=== PATIENT | male | born 1960 | race Caucasian/White ===

== ENCOUNTER 2022-09-23 09:02 | Emergency (ER) | payer MEDICARE ==
[~2022-09-23] VITALS: Ht 170.2 cm; Wt 122.0 kg
[~2022-09-23 09:02] MED LIST: AMLO10TA15 PO; ASCO500C18 PO; ASPI-611 PO; ATOR40TA71 PO; CLON0.1T PO; DOCU100C40 PO; FERR210T PO; FURO20TA4 PO; HYDR-4070 PO; INSU100I29 SQ; LISI5TAB22 PO; LOP25T PO; MSC30T PO; OXYC1TAB17 PO; PANT40TA54 PO; POLY17PO10 PO; TRAZ150T78 PO
[2022-09-23] MEDS ORDERED: oxyCODONE/APAP 10/325mg tablet PO ONE (09:45)
[2022-09-23 09:54] LABS: BASOPHILS # (AUTO) 0.1 X10'3 (0-0.2); BASOPHILS % (AUTO) 0.9 % (0-1); EOSINOPHILS # (AUTO) 0.2 X10'3 (0-0.9); EOSINOPHILS % (AUTO) 2.8 % (0-6); HEMATOCRIT 25.4 % (42.0-52.0); HEMOGLOBIN 8.5 g/dl (14.0-17.9); LYMPHOCYTES # (AUTO) 0.7 X10'3 (1.1-4.8); MEAN CORPUSCULAR HEMOGLOBIN 31.4 PG (27.0-31.0); MEAN CORPUSCULAR HGB CONC 33.3 g/dL (33.0-36.5); MEAN CORPUSCULAR VOLUME 94.4 FL (78-98); MEAN PLATELET VOLUME 8.3 FL (7.4-10.4); MONOCYTES # (AUTO) 0.7 X10'3 (0-0.9); MONOCYTES % (AUTO) 9.3 % (2-12); NEUTROPHILS # (AUTO) 6.1 X10'3 (1.8-7.7); PLATELET COUNT 202 X10'3 (140-440); RED BLOOD COUNT 2.69 X10'6 (4.70-6.10); RED CELL DISTRIBUTION WIDTH 15.6 % (11.5-14.5); WHITE BLOOD COUNT 7.8 X10'3 (4.5-11.0)
[2022-09-23 10:11] LABS: ALANINE AMINOTRANSFERASE 14 U/L (12-78); ALBUMIN 2.4 G/DL (3.4-5.0); ALBUMIN/GLOBULIN RATIO 0.7 (1.1-1.5); ALKALINE PHOSPHATASE 81 IU/L (46-116); ANION GAP 11 (8-16); ASPARTATE AMINO TRANSFERASE 14 U/L (10-37); BILIRUBIN,TOTAL 0.2 MG/DL (0.1-1.0); BLOOD UREA NITROGEN 48 MG/DL (7-18); CALCIUM 8.4 MG/DL (8.5-10.1); CHLORIDE 100 MMOL/L (99-107); CREATININE 3.99 MG/DL (0.60-1.10); GLUCOSE 96 MG/DL (70-104); POTASSIUM 5.3 MMOL/L (3.5-5.1); SODIUM 130 MMOL/L (135-145); TOTAL CARBON DIOXIDE 18.9 MMOL/L (24-32); TOTAL PROTEIN 5.7 G/DL (6.4-8.2); eGFR 15 ML/MIN
[2022-09-23] MEDS ORDERED: furosemide 10 MG/1 ML 10ml inj IV ONE (11:00)
[2022-09-23] MEDS ORDERED: FURO40TA4 PO (11:06)
[2022-09-23 11:43] VITALS: BP 106/79
== END 2022-09-23 11:46 | disposition home or self-care (01) ==
LOC: ER 09:02
DX: R06.02 Shortness of breath (principal); R60.0 Localized edema; I51.9 Heart disease, unspecified; E11.9 Type 2 diabetes mellitus without complications; Z79.899 Other long term (current) drug therapy; Z79.1 Long term (current) use of non-steroidal anti-inflammatories (NSAID); Z79.84 Long term (current) use of oral hypoglycemic drugs; Z79.82 Long term (current) use of aspirin
CPT/HCPCS: 36415; 71045; 80053; 83880; 84484; 85025; 93005; 96374; 99285; J1940

== ENCOUNTER 2023-09-17 12:51 | Inpatient (IN) | payer MEDICARE, OTHER ==
[~2023-09-17] VITALS: Ht 170.2 cm; Wt 93.9 kg
[~2023-09-17 12:51] MED LIST changes: -AMLO10TA15 PO; -ASCO500C18 PO; -ASPI-611 PO; -CLON0.1T PO; +CLON0.1T2 PO; -DOCU100C40 PO; -FERR210T PO; -FURO20TA4 PO; -HYDR-4070 PO; -INSU100I29 SQ; -LISI5TAB22 PO; +OXYC10TA47 PO; -OXYC1TAB17 PO; -PANT40TA54 PO; -POLY17PO10 PO; +POLY17PO59 PO; +hyDRALAzine tablet PO
[2023-09-17] MEDS: HYDROmorphone 1 mg/ml syringe IV ONE ×4 (14:43→18:05)
[2023-09-17] MEDS: CefTRIAXone 2gm/D5W 50ml BAG 50 ML IV ONE (14:43)
[2023-09-17] MEDS ORDERED: LOP12.5T PO (15:04)
[2023-09-17 15:05] LABS: BASOPHILS # (AUTO) 0.1 X10'3 (0-0.2); BASOPHILS % (AUTO) 0.9 % (0-1); EOSINOPHILS % (AUTO) 0.7 % (0-6); HEMATOCRIT 31.2 % (42.0-52.0); HEMOGLOBIN 9.9 g/dl (14.0-17.9); LYMPHOCYTES # (AUTO) 0.5 X10'3 (1.1-4.8); LYMPHOCYTES % (AUTO) 7.6 % (21-51); MEAN CORPUSCULAR HEMOGLOBIN 26.2 PG (27.0-31.0); MEAN CORPUSCULAR HGB CONC 31.6 g/dL (33.0-36.5); MEAN CORPUSCULAR VOLUME 82.8 FL (78-98); MEAN PLATELET VOLUME 8.3 FL (7.4-10.4); MONOCYTES # (AUTO) 0.8 X10'3 (0-0.9); MONOCYTES % (AUTO) 12.8 % (2-12); NEUTROPHILS # (AUTO) 5.1 X10'3 (1.8-7.7); PLATELET COUNT 145 X10'3 (140-440); RED BLOOD COUNT 3.77 X10'6 (4.70-6.10); RED CELL DISTRIBUTION WIDTH 20.1 % (11.5-14.5); WHITE BLOOD COUNT 6.5 X10'3 (4.5-11.0)
[2023-09-17 15:16] LABS: ALBUMIN 2.5 G/DL (3.4-5.0); ANION GAP 9 (8-16); BLOOD UREA NITROGEN 30 MG/DL (7-18); BUN/CREATININE RATIO 11.3 (10.0-20.0); CALCIUM 8.4 MG/DL (8.5-10.1); CHLORIDE 99 MMOL/L (99-107); CREATININE 2.65 MG/DL (0.60-1.10); POTASSIUM 4.4 MMOL/L (3.5-5.1); SODIUM 138 MMOL/L (135-145); TOTAL CARBON DIOXIDE 30.5 MMOL/L (24-32); eCRCL 26 ML/MIN; eGFR 24 ML/MIN
[2023-09-17 15:24] LABS: GLUCOSE 130 MG/DL (70-104)
[2023-09-17 15:26] LABS: ANISOCYTOSIS 3+; ELLIPTOCYTES FEW; HYPOCHROMASIA 1+; PLATELET ESTIMATE NORMAL
[2023-09-17 15:27] LABS: SCHISTOCYTES FEW
[2023-09-17] MEDS: fluorescein sod 1mg ophthalmic strip RIGHTEYE ONE (16:00)
[2023-09-17] MEDS ORDERED: magnesium 2GM in 50ml NS 50 ML IV PRN (18:05)
[2023-09-17] MEDS ORDERED: potassium Cl 20 mEq SR tablet PO PRN ×2 (18:05)
[2023-09-17] MEDS ORDERED: ondansetron/PF 4mg/2ml inj IV PRN (18:05)
[2023-09-17] MEDS ORDERED: potassium Cl 40MEQ/1/2NS 520ml 520 ML IV PRN (18:05)
[2023-09-17] MEDS ORDERED: morphine 2 MG/ML inj. syringe IV PRN (18:05)
[2023-09-17] MEDS ORDERED: magnesium hydroxide 30ml (MOM) UD suspension PO PRN (18:05)
[2023-09-17] MEDS ORDERED: magnesium 4gm in 100ml NS 100 ML IV PRN (18:05)
[2023-09-17] MEDS ORDERED: mag hydrox/Alum hydrox/simeth 30ml oral suspension PO PRN (18:05)
[2023-09-17] MEDS ORDERED: magnesium Cl slow-release 64mg tablet PO PRN (18:05)
[2023-09-17] MEDS ORDERED: acetaminophen 325mg tablet PO PRN (18:05)
[2023-09-17] MEDS: acyclovir inj 1,000 MG in normal saline 250ml IV soln 250 ML IV SCH (19:12)
[2023-09-17] MEDS: LORazepam 2 mg/ml vial IV PRN (19:53)
[2023-09-17] MEDS: K and/or MAG REPLACEMENT MC SCH (19:58)
[2023-09-17] MEDS: docusate sod 100mg capsule PO SCH (20:40)
[2023-09-17] MEDS: heparin, porcine 5000 units/ml vial SQ SCH (20:40)
[2023-09-18] VITALS (8 sets, daily range): BP systolic 133–185; BP diastolic 64–98; PULSE 99–109; RESP 13–22; TEMP 96.9–99.5; O2SAT 93–97
[2023-09-18] MEDS: morphine 2 MG/ML inj. syringe IV PRN (01:36)
[2023-09-18] MEDS: piperacillin/tazo 3.375gm/50ml 50 ML IV SCH (01:40)
[2023-09-18 07:52] LABS: BASOPHILS # (AUTO) 0.1 X10'3 (0-0.2); BASOPHILS % (AUTO) 1.3 % (0-1); EOSINOPHILS # (AUTO) 0.3 X10'3 (0-0.9); EOSINOPHILS % (AUTO) 4.6 % (0-6); HEMATOCRIT 33.2 % (42.0-52.0); HEMOGLOBIN 10.6 g/dl (14.0-17.9); LYMPHOCYTES # (AUTO) 0.5 X10'3 (1.1-4.8); LYMPHOCYTES % (AUTO) 6.4 % (21-51); MEAN CORPUSCULAR HEMOGLOBIN 26.5 PG (27.0-31.0); MEAN CORPUSCULAR HGB CONC 31.9 g/dL (33.0-36.5); MEAN CORPUSCULAR VOLUME 83.1 FL (78-98); MEAN PLATELET VOLUME 8.4 FL (7.4-10.4); MONOCYTES # (AUTO) 0.6 X10'3 (0-0.9); MONOCYTES % (AUTO) 8.2 % (2-12); NEUTROPHILS % (AUTO) 79.5 % (42-75); PLATELET COUNT 152 X10'3 (140-440); RED CELL DISTRIBUTION WIDTH 20.1 % (11.5-14.5); WHITE BLOOD COUNT 7.6 X10'3 (4.5-11.0)
[2023-09-18 08:07] LABS: ALANINE AMINOTRANSFERASE 9 U/L (12-78); ALBUMIN 2.6 G/DL (3.4-5.0); ALBUMIN/GLOBULIN RATIO 0.5 (1.1-1.5); ALKALINE PHOSPHATASE 137 IU/L (46-116); ANION GAP 5 (8-16); ASPARTATE AMINO TRANSFERASE 18 U/L (10-37); BILIRUBIN,TOTAL 0.6 MG/DL (0.1-1.0); BLOOD UREA NITROGEN 32 MG/DL (7-18); BUN/CREATININE RATIO 10.4 (10.0-20.0); CHLORIDE 101 MMOL/L (99-107); CREATININE 3.08 MG/DL (0.60-1.10); MAGNESIUM 1.9 MG/DL (1.5-2.4); POTASSIUM 4.3 MMOL/L (3.5-5.1); SODIUM 138 MMOL/L (135-145); TOTAL CARBON DIOXIDE 31.7 MMOL/L (24-32); TOTAL PROTEIN 7.5 G/DL (6.4-8.2); eCRCL 22 ML/MIN; eGFR 20 ML/MIN
[2023-09-18 08:16] LABS: GLUCOSE 97 MG/DL (70-104)
[2023-09-18] MEDS ORDERED: cloNIDine 0.1 mg tablet PO PRN (13:35)
[2023-09-18 15:43] LABS: APTT 26 SECONDS (22-32); FIBRINOGEN 267 MG/DL (177-424); INR 1.2 INR; PROTHROMBIN TIME 12.8 SECONDS (9.0-12.0)
[2023-09-18 16:45] LABS: ABG BASE EXCESS 2.2 mmol/L (-2.0-2.0); ABG HCO3 27.7 mmol/L (22.0-26.0); ABG OXYGEN SATURATION 94.1 % (94-97); ABG PCO2 (T) 48.7 mmHg (35.0-48.0); ABG PH (T) 7.376 (7.340-7.440); ABG PO2 (T) 75.7 mmHg (75.0-100.0); ALLEN'S TEST POSITIVE; FCOHb 1.1 % (0.0-3.9); FHHb 5.8 % (0.0-5.0); FLOW 2 L/min; FMetHb 0.3 % (0.0-1.5); FO2Hb 92.8 % (94-97); MODE NASAL CANNULA; PATIENT TEMPERATURE 37.5; TOTAL HEMOGLOBIN 9.9 G/dl (14.0-17.9)
[2023-09-18] MEDS: QUEtiapine 25mg tablet PO SCH (21:00)
[2023-09-19] VITALS (16 sets, daily range): BP systolic 119–181; BP diastolic 55–107; PULSE 92–116; RESP 12–22; TEMP 98.2–100.2; O2SAT 96–100
[2023-09-19] MEDS ORDERED: normal saline 1000ml 250 ML IV PRN (07:10)
[2023-09-19 07:22] LABS: BASOPHILS # (AUTO) 0.1 X10'3 (0-0.2); BASOPHILS % (AUTO) 1.3 % (0-1); EOSINOPHILS # (AUTO) 0.3 X10'3 (0-0.9); EOSINOPHILS % (AUTO) 4.6 % (0-6); HEMATOCRIT 27.2 % (42.0-52.0); HEMOGLOBIN 8.6 g/dl (14.0-17.9); LYMPHOCYTES # (AUTO) 0.8 X10'3 (1.1-4.8); LYMPHOCYTES % (AUTO) 11.8 % (21-51); MEAN CORPUSCULAR HEMOGLOBIN 26.3 PG (27.0-31.0); MEAN CORPUSCULAR HGB CONC 31.6 g/dL (33.0-36.5); MEAN CORPUSCULAR VOLUME 83.2 FL (78-98); MEAN PLATELET VOLUME 8.2 FL (7.4-10.4); MONOCYTES # (AUTO) 0.8 X10'3 (0-0.9); MONOCYTES % (AUTO) 11.9 % (2-12); NEUTROPHILS # (AUTO) 4.7 X10'3 (1.8-7.7); NEUTROPHILS % (AUTO) 70.4 % (42-75); PLATELET COUNT 138 X10'3 (140-440); RED BLOOD COUNT 3.27 X10'6 (4.70-6.10); RED CELL DISTRIBUTION WIDTH 19.5 % (11.5-14.5); WHITE BLOOD COUNT 6.7 X10'3 (4.5-11.0)
[2023-09-19] MEDS: acyclovir inj 500 MG in normal saline 100ml IV soln 100 ML IV SCH (07:37)
[2023-09-19 07:41] LABS: ALANINE AMINOTRANSFERASE 10 U/L (12-78); ALBUMIN 2.4 G/DL (3.4-5.0); ALBUMIN/GLOBULIN RATIO 0.5 (1.1-1.5); ALKALINE PHOSPHATASE 110 IU/L (46-116); ANION GAP 5 (8-16); ASPARTATE AMINO TRANSFERASE 16 U/L (10-37); BILIRUBIN,TOTAL 0.6 MG/DL (0.1-1.0); BLOOD UREA NITROGEN 34 MG/DL (7-18); CALCIUM 8.8 MG/DL (8.5-10.1); CHLORIDE 103 MMOL/L (99-107); CREATININE 3.78 MG/DL (0.60-1.10); MAGNESIUM 1.8 MG/DL (1.5-2.4); POTASSIUM 4.9 MMOL/L (3.5-5.1); SODIUM 139 MMOL/L (135-145); TOTAL PROTEIN 6.9 G/DL (6.4-8.2); eCRCL 18 ML/MIN; eGFR 16 ML/MIN
[2023-09-19 07:44] LABS: GLUCOSE 80 MG/DL (70-104)
[2023-09-19 08:33] LABS: ANISOCYTOSIS 2+; PLATELET ESTIMATE DECREASED
[2023-09-19 08:34] LABS: HYPOCHROMASIA 1+
[2023-09-19 08:35] LABS: ELLIPTOCYTES FEW
[2023-09-19] MEDS ORDERED: iohexol 300mg/ml 100ml inj. ONE (10:20)
[2023-09-19] MEDS: EPOETIN ALFA-EPBX 20,000 UNIT/ML 1 ML MDV IV ONE (12:21)
[2023-09-19] MEDS: HYDROmorphone inj. 0.5 MG/0.5 ML DISP.SYRIN IV PRN (12:34)
[2023-09-19] MEDS: heparin 1,000unit/ml 10ml vial 10 ML IV ONE (12:34)
[2023-09-19] MEDS: heparin 1,000 units/ml 10ml inj HE ONE ×2 (12:36→12:52)
[2023-09-19] MEDS ORDERED: heparin 1,000 units/ml 10ml inj HE ONE (12:50)
[2023-09-19] MEDS: cloNIDine 0.2 MG/24 HR patch (7 day patch) TD SCH (14:40)
[2023-09-19] MEDS: ringers solution, lacted 1,000 ML IV SCH (18:55)
[2023-09-19] MEDS ORDERED: ondansetron/PF 4mg/2ml inj IV PRN (18:55)
[2023-09-19] MEDS ORDERED: proCHLORperazine 10 MG/2 ml inj IV PRN (18:55)
[2023-09-19] MEDS ORDERED: morphine 2 MG/ML inj. syringe IV PRN (18:55)
[2023-09-19] MEDS ORDERED: morphine 4 MG/ML inj SYRINge IV PRN (18:55)
[2023-09-19] MEDS ORDERED: sevoflurane 250ml liquid IH ONE (18:58)
[2023-09-19] MEDS ORDERED: propofol inj 20 ML IV ONE (19:02)
[2023-09-19] MEDS ORDERED: fentaNYL/PF 50MCG/1 ML 2ML syringe ONE (19:02)
[2023-09-20 01:45] VITALS: BP 140/68; PULSE 98; RESP 18; TEMP 99.2; O2SAT 94
[2023-09-20 06:39] VITALS: BP 152/74; PULSE 92; RESP 14; TEMP 96.8; O2SAT 100
[2023-09-20 07:40] LABS: BASOPHILS # (AUTO) 0.1 X10'3 (0-0.2); BASOPHILS % (AUTO) 1.2 % (0-1); EOSINOPHILS # (AUTO) 0.3 X10'3 (0-0.9); EOSINOPHILS % (AUTO) 4.5 % (0-6); HEMATOCRIT 24.8 % (42.0-52.0); HEMOGLOBIN 7.7 g/dl (14.0-17.9); LYMPHOCYTES # (AUTO) 1.1 X10'3 (1.1-4.8); LYMPHOCYTES % (AUTO) 17.1 % (21-51); MEAN CORPUSCULAR HGB CONC 30.9 g/dL (33.0-36.5); MEAN CORPUSCULAR VOLUME 84.3 FL (78-98); MEAN PLATELET VOLUME 8.6 FL (7.4-10.4); MONOCYTES # (AUTO) 0.9 X10'3 (0-0.9); MONOCYTES % (AUTO) 13.9 % (2-12); NEUTROPHILS # (AUTO) 4.1 X10'3 (1.8-7.7); NEUTROPHILS % (AUTO) 63.3 % (42-75); PLATELET COUNT 123 X10'3 (140-440); RED BLOOD COUNT 2.94 X10'6 (4.70-6.10); RED CELL DISTRIBUTION WIDTH 19.8 % (11.5-14.5); WHITE BLOOD COUNT 6.5 X10'3 (4.5-11.0)
[2023-09-20 07:54] LABS: ALBUMIN 2.3 G/DL (3.4-5.0); ALBUMIN/GLOBULIN RATIO 0.5 (1.1-1.5); ALKALINE PHOSPHATASE 97 IU/L (46-116); ANION GAP 4 (8-16); ASPARTATE AMINO TRANSFERASE 16 U/L (10-37); BILIRUBIN,TOTAL 0.6 MG/DL (0.1-1.0); BLOOD UREA NITROGEN 16 MG/DL (7-18); BUN/CREATININE RATIO 6.3 (10.0-20.0); CALCIUM 8.6 MG/DL (8.5-10.1); CHLORIDE 104 MMOL/L (99-107); CREATININE 2.56 MG/DL (0.60-1.10); MAGNESIUM 1.8 MG/DL (1.5-2.4); POTASSIUM 4.2 MMOL/L (3.5-5.1); SODIUM 139 MMOL/L (135-145); TOTAL CARBON DIOXIDE 31.2 MMOL/L (24-32); TOTAL PROTEIN 6.5 G/DL (6.4-8.2); eCRCL 27 ML/MIN; eGFR 25 ML/MIN
[2023-09-20 07:55] LABS: ALANINE AMINOTRANSFERASE < 6 U/L (12-78); GLUCOSE 75 MG/DL (70-104)
[2023-09-20 08:00] VITALS: RESP 16; O2SAT 96
[2023-09-20] MEDS: NUT.TX.IMP.RENAL FXN,LAC-REDUC (Nepro) 237 ML VANILLA PO SCH (13:00)
[2023-09-20 14:27] LABS: HBSAG SCREEN Negative (Negative)
[2023-09-20 20:00] VITALS: RESP 16; O2SAT 96
[2023-09-20 22:00] VITALS: BP 176/87; PULSE 111; RESP 16; TEMP 98.1; O2SAT 95
[2023-09-21] VITALS (12 sets, daily range): BP systolic 147–180; BP diastolic 68–94; PULSE 97–109; RESP 13–18; TEMP 99.1–99.3; O2SAT 94–100
[2023-09-21 07:03] LABS: BASOPHILS # (AUTO) 0.1 X10'3 (0-0.2); BASOPHILS % (AUTO) 1.3 % (0-1); EOSINOPHILS # (AUTO) 0.3 X10'3 (0-0.9); EOSINOPHILS % (AUTO) 3.5 % (0-6); HEMATOCRIT 25.7 % (42.0-52.0); HEMOGLOBIN 8.2 g/dl (14.0-17.9); MEAN CORPUSCULAR HEMOGLOBIN 26.4 PG (27.0-31.0); MEAN CORPUSCULAR HGB CONC 31.7 g/dL (33.0-36.5); MEAN CORPUSCULAR VOLUME 83.3 FL (78-98); MEAN PLATELET VOLUME 8.4 FL (7.4-10.4); MONOCYTES # (AUTO) 0.6 X10'3 (0-0.9); MONOCYTES % (AUTO) 8.1 % (2-12); NEUTROPHILS # (AUTO) 5.7 X10'3 (1.8-7.7); NEUTROPHILS % (AUTO) 74.1 % (42-75); PLATELET COUNT 148 X10'3 (140-440); RED BLOOD COUNT 3.09 X10'6 (4.70-6.10); RED CELL DISTRIBUTION WIDTH 19.6 % (11.5-14.5); WHITE BLOOD COUNT 7.6 X10'3 (4.5-11.0)
[2023-09-21 07:32] LABS: ALANINE AMINOTRANSFERASE 6 U/L (12-78); ALBUMIN 2.4 G/DL (3.4-5.0); ALBUMIN/GLOBULIN RATIO 0.5 (1.1-1.5); ALKALINE PHOSPHATASE 106 IU/L (46-116); ANION GAP 8 (8-16); ASPARTATE AMINO TRANSFERASE 7 U/L (10-37); BILIRUBIN,TOTAL 0.7 MG/DL (0.1-1.0); BLOOD UREA NITROGEN 21 MG/DL (7-18); CALCIUM 8.9 MG/DL (8.5-10.1); CHLORIDE 102 MMOL/L (99-107); CREATININE 3.49 MG/DL (0.60-1.10); MAGNESIUM 1.8 MG/DL (1.5-2.4); POTASSIUM 4.1 MMOL/L (3.5-5.1); SODIUM 138 MMOL/L (135-145); TOTAL CARBON DIOXIDE 27.7 MMOL/L (24-32); TOTAL PROTEIN 6.9 G/DL (6.4-8.2); eCRCL 20 ML/MIN; eGFR 18 ML/MIN
[2023-09-21 07:36] LABS: GLUCOSE 111 MG/DL (70-104)
[2023-09-21] MEDS: HYDROmorphone 1 mg/ml syringe IV PRN (07:53)
[2023-09-21] MEDS ORDERED: normal saline 1000ml 250 ML IV PRN (09:10)
[2023-09-21] MEDS: heparin 1,000unit/ml 10ml vial 10 ML IV ONE (10:02)
[2023-09-21] MEDS: heparin 1,000 units/ml 10ml inj HE ONE ×2 (11:16→11:17)
[2023-09-21] MEDS: EPOETIN ALFA-EPBX 20,000 UNIT/ML 1 ML MDV IV ONE (11:17)
[2023-09-21] MEDS: hydrALAZINE 20mg/ml inj. IV PRN (12:59)
[2023-09-22 04:45] VITALS: BP 150/87; PULSE 82; RESP 18; TEMP 98.7; O2SAT 96
[2023-09-22 06:39] LABS: BASOPHILS # (AUTO) 0.1 X10'3 (0-0.2); BASOPHILS % (AUTO) 0.9 % (0-1); EOSINOPHILS # (AUTO) 0.4 X10'3 (0-0.9); EOSINOPHILS % (AUTO) 4.8 % (0-6); HEMATOCRIT 26.5 % (42.0-52.0); HEMOGLOBIN 8.5 g/dl (14.0-17.9); LYMPHOCYTES # (AUTO) 0.8 X10'3 (1.1-4.8); LYMPHOCYTES % (AUTO) 10.5 % (21-51); MEAN CORPUSCULAR HEMOGLOBIN 26.9 PG (27.0-31.0); MEAN CORPUSCULAR HGB CONC 31.9 g/dL (33.0-36.5); MEAN CORPUSCULAR VOLUME 84.2 FL (78-98); MEAN PLATELET VOLUME 8.3 FL (7.4-10.4); MONOCYTES # (AUTO) 0.5 X10'3 (0-0.9); MONOCYTES % (AUTO) 6.7 % (2-12); NEUTROPHILS # (AUTO) 5.9 X10'3 (1.8-7.7); NEUTROPHILS % (AUTO) 77.1 % (42-75); PLATELET COUNT 154 X10'3 (140-440); RED BLOOD COUNT 3.15 X10'6 (4.70-6.10); RED CELL DISTRIBUTION WIDTH 19.4 % (11.5-14.5); WHITE BLOOD COUNT 7.6 X10'3 (4.5-11.0)
[2023-09-22 07:06] LABS: ALANINE AMINOTRANSFERASE 10 U/L (12-78); ALBUMIN 2.5 G/DL (3.4-5.0); ALBUMIN/GLOBULIN RATIO 0.6 (1.1-1.5); ALKALINE PHOSPHATASE 106 IU/L (46-116); ANION GAP 8 (8-16); ASPARTATE AMINO TRANSFERASE 16 U/L (10-37); BILIRUBIN,TOTAL 0.6 MG/DL (0.1-1.0); BLOOD UREA NITROGEN 12 MG/DL (7-18); BUN/CREATININE RATIO 4.7 (10.0-20.0); CALCIUM 8.7 MG/DL (8.5-10.1); CHLORIDE 102 MMOL/L (99-107); CREATININE 2.55 MG/DL (0.60-1.10); POTASSIUM 3.7 MMOL/L (3.5-5.1); SODIUM 138 MMOL/L (135-145); TOTAL CARBON DIOXIDE 27.7 MMOL/L (24-32); TOTAL PROTEIN 6.9 G/DL (6.4-8.2); eCRCL 27 ML/MIN; eGFR 25 ML/MIN
[2023-09-22 07:18] LABS: GLUCOSE 106 MG/DL (70-104)
[2023-09-22 07:25] VITALS: RESP 18; O2SAT 96
[2023-09-22 10:00] VITALS: BP 135/70; PULSE 105; RESP 18; TEMP 98.9; O2SAT 100
[2023-09-22] MEDS ORDERED: HYDROcodone/acetaminophen 5mg/325mg tablet PO PRN (12:00)
[2023-09-22] MEDS: HYDROcodone/acetaminophen 10/325mg tab PO PRN (12:17)
[2023-09-22 13:34] LABS: ANISOCYTOSIS 2+; HYPOCHROMASIA 2+; PLATELET ESTIMATE NORMAL
[2023-09-22 13:35] LABS: ELLIPTOCYTES FEW; SCHISTOCYTES FEW
[2023-09-22 18:00] VITALS: BP 135/90; PULSE 105; RESP 16; TEMP 98.1; O2SAT 94
[2023-09-22 20:00] VITALS: RESP 16; O2SAT 94
[2023-09-22 22:00] VITALS: BP 150/64; PULSE 104; RESP 20; TEMP 98.9; O2SAT 94
[2023-09-23 06:00] VITALS: BP 160/84; PULSE 99; RESP 18; TEMP 98; O2SAT 94
[2023-09-23] MEDS ORDERED: HYDROmorphone 1 mg/ml syringe IV PRN (07:10)
[2023-09-23] MEDS ORDERED: HYDROmorphone inj. 0.5 MG/0.5 ML DISP.SYRIN IV PRN (07:10)
[2023-09-23 07:13] LABS: BASOPHILS # (AUTO) 0.1 X10'3 (0-0.2); BASOPHILS % (AUTO) 1.1 % (0-1); EOSINOPHILS # (AUTO) 0.5 X10'3 (0-0.9); EOSINOPHILS % (AUTO) 8.4 % (0-6); HEMATOCRIT 26.1 % (42.0-52.0); HEMOGLOBIN 8.4 g/dl (14.0-17.9); LYMPHOCYTES # (AUTO) 0.9 X10'3 (1.1-4.8); LYMPHOCYTES % (AUTO) 15.9 % (21-51); MEAN CORPUSCULAR HEMOGLOBIN 26.7 PG (27.0-31.0); MEAN CORPUSCULAR VOLUME 83.5 FL (78-98); MEAN PLATELET VOLUME 8.5 FL (7.4-10.4); MONOCYTES # (AUTO) 0.5 X10'3 (0-0.9); NEUTROPHILS # (AUTO) 3.8 X10'3 (1.8-7.7); NEUTROPHILS % (AUTO) 65.6 % (42-75); PLATELET COUNT 170 X10'3 (140-440); RED BLOOD COUNT 3.13 X10'6 (4.70-6.10); RED CELL DISTRIBUTION WIDTH 19.9 % (11.5-14.5); WHITE BLOOD COUNT 5.9 X10'3 (4.5-11.0)
[2023-09-23 07:40] LABS: ALANINE AMINOTRANSFERASE 7 U/L (12-78); ALBUMIN 2.5 G/DL (3.4-5.0); ALBUMIN/GLOBULIN RATIO 0.6 (1.1-1.5); ALKALINE PHOSPHATASE 103 IU/L (46-116); ANION GAP 8 (8-16); ASPARTATE AMINO TRANSFERASE 13 U/L (10-37); BILIRUBIN,TOTAL 0.6 MG/DL (0.1-1.0); BLOOD UREA NITROGEN 21 MG/DL (7-18); BUN/CREATININE RATIO 6.5 (10.0-20.0); CALCIUM 8.8 MG/DL (8.5-10.1); CHLORIDE 104 MMOL/L (99-107); CREATININE 3.23 MG/DL (0.60-1.10); GLUCOSE 123 MG/DL (70-104); POTASSIUM 3.8 MMOL/L (3.5-5.1); SODIUM 138 MMOL/L (135-145); TOTAL CARBON DIOXIDE 26.5 MMOL/L (24-32); eCRCL 21 ML/MIN; eGFR 19 ML/MIN
[2023-09-23] MEDS ORDERED: polyethylene glycol 3350 17gm powd pack PO PRN (08:15)
[2023-09-23] MEDS ORDERED: non-formulary drug (Oxycodone Hcl 1 TAB) PO PRN (08:15)
[2023-09-23 08:55] VITALS: RESP 18; O2SAT 94
[2023-09-23 10:00] VITALS: BP 166/84; PULSE 98; RESP 20; TEMP 97.8; O2SAT 95
[2023-09-23] MEDS: valacyclovir 500mg tablet PO SCH (17:05)
[2023-09-23 18:38] VITALS: BP 153/86; PULSE 97; RESP 16; TEMP 97.9; O2SAT 98
[2023-09-23 20:00] VITALS: RESP 16; O2SAT 98
[2023-09-23] MEDS: atorvastatin 20mg tablet PO SCH (20:59)
[2023-09-23] MEDS: morphine ER 30mg tablet PO SCH (20:59)
[2023-09-23] MEDS: metoprolol tartrate 12.5mg (1/2 tablet) PO SCH (21:04)
[2023-09-23 22:00] VITALS: BP 160/79; PULSE 82; RESP 16; TEMP 98.7; O2SAT 96
[2023-09-23] MEDS: LORazepam 0.5 MG tablet PO PRN (23:07)
[2023-09-23] MEDS: hyDRALAzine 10mg tablet PO SCH (23:07)
[2023-09-24] VITALS (13 sets, daily range): BP systolic 130–156; BP diastolic 69–88; PULSE 98–103; RESP 16–22; TEMP 96.5–98.2; O2SAT 94–99
[2023-09-24] MEDS ORDERED: normal saline 1000ml 250 ML IV PRN (08:15)
[2023-09-24 08:59] LABS: BASOPHILS # (AUTO) 0.1 X10'3 (0-0.2); EOSINOPHILS # (AUTO) 0.5 X10'3 (0-0.9); EOSINOPHILS % (AUTO) 7.7 % (0-6); HEMATOCRIT 27.2 % (42.0-52.0); HEMOGLOBIN 8.6 g/dl (14.0-17.9); LYMPHOCYTES # (AUTO) 0.8 X10'3 (1.1-4.8); LYMPHOCYTES % (AUTO) 12.3 % (21-51); MEAN CORPUSCULAR HEMOGLOBIN 26.4 PG (27.0-31.0); MEAN CORPUSCULAR HGB CONC 31.6 g/dL (33.0-36.5); MEAN CORPUSCULAR VOLUME 83.5 FL (78-98); MEAN PLATELET VOLUME 8.6 FL (7.4-10.4); MONOCYTES # (AUTO) 0.6 X10'3 (0-0.9); MONOCYTES % (AUTO) 9.2 % (2-12); NEUTROPHILS # (AUTO) 4.3 X10'3 (1.8-7.7); NEUTROPHILS % (AUTO) 69.8 % (42-75); PLATELET COUNT 208 X10'3 (140-440); RED BLOOD COUNT 3.25 X10'6 (4.70-6.10); RED CELL DISTRIBUTION WIDTH 20.2 % (11.5-14.5); WHITE BLOOD COUNT 6.1 X10'3 (4.5-11.0)
[2023-09-24 09:12] LABS: ALANINE AMINOTRANSFERASE 9 U/L (12-78); ALBUMIN 2.6 G/DL (3.4-5.0); ALBUMIN/GLOBULIN RATIO 0.5 (1.1-1.5); ALKALINE PHOSPHATASE 107 IU/L (46-116); ANION GAP 8 (8-16); ASPARTATE AMINO TRANSFERASE 13 U/L (10-37); BILIRUBIN,TOTAL 0.7 MG/DL (0.1-1.0); BLOOD UREA NITROGEN 26 MG/DL (7-18); BUN/CREATININE RATIO 7.2 (10.0-20.0); CHLORIDE 102 MMOL/L (99-107); CREATININE 3.61 MG/DL (0.60-1.10); POTASSIUM 3.8 MMOL/L (3.5-5.1); SODIUM 137 MMOL/L (135-145); TOTAL CARBON DIOXIDE 27.3 MMOL/L (24-32); TOTAL PROTEIN 7.4 G/DL (6.4-8.2); eCRCL 19 ML/MIN; eGFR 17 ML/MIN
[2023-09-24 09:17] LABS: GLUCOSE 127 MG/DL (70-104)
[2023-09-24] MEDS ORDERED: CLON1PAT15 TD (10:17)
[2023-09-24] MEDS: heparin 1,000unit/ml 10ml vial 10 ML IV ONE (10:51)
[2023-09-24] MEDS: heparin 1,000 units/ml 10ml inj HE ONE ×2 (10:52→10:53)
[2023-09-24] MEDS: EPOETIN ALFA-EPBX 20,000 UNIT/ML 1 ML MDV IV ONE (10:54)
== END 2023-09-24 17:25 | DRG 570 ==
LOC: ER 12:52 → ED HOLD 18:09 → ORTHO 4S 09-18 02:13
PROVIDERS: ADMIT Internal Medicine; ATTEND Internal Medicine
PROC: BQ28ZZZ Computerized Tomography (CT Scan) of Left Knee (ICD-10-PCS; 2023-09-17)
PROC: BW2GZZZ Computerized Tomography (CT Scan) of Pelvic Region (ICD-10-PCS; 2023-09-17)
PROC: 5A1D70Z Performance of Urinary Filtration, Intermittent, Less than 6 Hours Per Day (ICD-10-PCS; 2023-09-19)
PROC: 0JBN0ZZ Excision of Right Lower Leg Subcutaneous Tissue and Fascia, Open Approach (ICD-10-PCS; principal; 2023-09-19 18:58)
PROC: 5A1D70Z Performance of Urinary Filtration, Intermittent, Less than 6 Hours Per Day (ICD-10-PCS; 2023-09-21)
PROC: 5A1D70Z Performance of Urinary Filtration, Intermittent, Less than 6 Hours Per Day (ICD-10-PCS; 2023-09-24)
DX: L03.115 Cellulitis of right lower limb (principal); G93.41 Metabolic encephalopathy; N18.6 End stage renal disease; B02.30 Zoster ocular disease, unspecified; I13.2 Hypertensive heart and chronic kidney disease with heart failure and with stage 5 chronic kidney disease, or end stage renal disease; L03.116 Cellulitis of left lower limb; S70.11XA Contusion of right thigh, initial encounter; I50.9 Heart failure, unspecified; I25.10 Atherosclerotic heart disease of native coronary artery without angina pectoris; E78.00 Pure hypercholesterolemia, unspecified; E11.22 Type 2 diabetes mellitus with diabetic chronic kidney disease; F17.210 Nicotine dependence, cigarettes, uncomplicated; Z66 Do not resuscitate; D64.9 Anemia, unspecified; B02.9 Zoster without complications; E11.51 Type 2 diabetes mellitus with diabetic peripheral angiopathy without gangrene; E11.319 Type 2 diabetes mellitus with unspecified diabetic retinopathy without macular edema; M51.36 Other intervertebral disc degeneration, lumbar region; F03.90 Unspecified dementia, unspecified severity, without behavioral disturbance, psychotic disturbance, mood disturbance, and anxiety; G89.29 Other chronic pain; X58.XXXA Exposure to other specified factors, initial encounter; Z85.038 Personal history of other malignant neoplasm of large intestine; Z79.899 Other long term (current) drug therapy; Z99.2 Dependence on renal dialysis; Z90.49 Acquired absence of other specified parts of digestive tract; Y93.89 Activity, other specified; Y92.89 Other specified places as the place of occurrence of the external cause; Y99.8 Other external cause status; Z80.42 Family history of malignant neoplasm of prostate
CPT/HCPCS: 36415; 36600; 70450; 71045; 72131; 72192; 73700; 73701; 80048; 80053; 82803; 82948; 83605; 83735; 84145; 85008; 85018; 85025; 85384; 85610; 85730; 87040; 87081; 87340; 97161; 97530; 99285; A4618; A6212; A6213; A6222; A6223; A6224; A6243; A6250; A6253; A6258; A6260; A6446; A6449; A6590; A7000; E1594; G0257; G0378; J0133; J0360; J0696; J1170; J1644; J2060; J2270; J2543; J2704; J3010; J3490; J7030; J7050; Q4081; Q9967

== ENCOUNTER 2024-02-20 11:42 | Emergency (ER) | payer MEDICARE, MEDICAID ==
[~2024-02-20] VITALS: Ht 170.2 cm; Wt 94.5 kg
[~2024-02-20 11:42] MED LIST changes: -CLON0.1T2 PO; +CLON1PAT15 TD; +LOP12.5T PO; -LOP25T PO; -TRAZ150T78 PO; -hyDRALAzine tablet PO
[2024-02-20 11:57] VITALS: TEMP 97.8
[2024-02-20 14:05] LABS: CLARITY,URINE BLOODY (Clear); COLOR,URINE RED (Yellow); UA COLLECTION TYPE CLN CATCH MIDSTREAM
[2024-02-20 14:07] LABS: BACTERIA,URINE FEW /HPF (Neg); RBC,URINE TNTC /HPF (0-2); SQUAMOUS EPITHELIAL CELL,UR FEW /LPF (FEW); WBC,URINE TNTC /HPF (0-4)
[2024-02-20] MEDS ORDERED: CEFD300C3 PO (15:19)
[2024-02-20] MEDS ORDERED: CEFTRIAXONE 500 MG VIAL IM STA (15:19)
[2024-02-20] MEDS: CefTRIAXone 1000mg IM Kit (w/lidocaine diluent) IM ONE (15:44)
[2024-02-20 15:49] VITALS: BP 136/46; PULSE 63; RESP 16; O2SAT 94
== END 2024-02-20 15:51 | disposition home or self-care (01) ==
LOC: ER 11:42
DX: N39.0 Urinary tract infection, site not specified (principal); R31.9 Hematuria, unspecified; I25.10 Atherosclerotic heart disease of native coronary artery without angina pectoris; E11.22 Type 2 diabetes mellitus with diabetic chronic kidney disease; N18.6 End stage renal disease; E78.00 Pure hypercholesterolemia, unspecified; Z79.899 Other long term (current) drug therapy
CPT/HCPCS: 81001; 87077; 87088; 87186; 96372; 99283; J0696

== ENCOUNTER 2024-04-05 12:23 | Inpatient (IN) | payer MEDICARE, MEDICAID ==
[~2024-04-05] VITALS: Ht 175.3 cm; Wt 98.0 kg
[2024-04-05 13:41] LABS: BILIRUBIN,URINE NEGATIVE (Neg); CLARITY,URINE CLOUDY (Clear); COLOR,URINE YELLOW (Yellow); GLUCOSE, URINE 100 mg/dl (Neg); KETONES,URINE TRACE mg/dl (Neg); LEUKOCYTE ESTERASE ,URINE SMALL (Neg); NITRITES, URINE NEGATIVE (Neg); OCCULT BLOOD,URINE NEGATIVE (Neg); PROTEIN,URINE >=300 mg/dl (Neg); UA COLLECTION TYPE NON-SPECIFIED; UROBILINOGEN,URINE 0.2 E.U/dL (0.2-1.0)
[2024-04-05 13:52] LABS: SQUAMOUS EPITHELIAL CELL,UR MODERATE /LPF (FEW)
[2024-04-05 13:54] LABS: BASOPHILS % (AUTO) 0.5 % (0-1); EOSINOPHILS # (AUTO) 0.2 X10'3 (0-0.9); HEMATOCRIT 34.7 % (42.0-52.0); HEMOGLOBIN 11.7 g/dl (14.0-17.9); LYMPHOCYTES # (AUTO) 0.6 X10'3 (1.1-4.8); LYMPHOCYTES % (AUTO) 7.2 % (21-51); MEAN CORPUSCULAR HEMOGLOBIN 31.4 PG (27.0-31.0); MEAN CORPUSCULAR HGB CONC 33.6 g/dL (33.0-36.5); MEAN CORPUSCULAR VOLUME 93.4 FL (78-98); MEAN PLATELET VOLUME 8.9 FL (7.4-10.4); MONOCYTES # (AUTO) 0.8 X10'3 (0-0.9); MONOCYTES % (AUTO) 9.2 % (2-12); NEUTROPHILS # (AUTO) 6.6 X10'3 (1.8-7.7); NEUTROPHILS % (AUTO) 81.1 % (42-75); PLATELET COUNT 125 X10'3 (140-440); RED BLOOD COUNT 3.71 X10'6 (4.70-6.10); RED CELL DISTRIBUTION WIDTH 16.7 % (11.5-14.5); WHITE BLOOD COUNT 8.2 X10'3 (4.5-11.0)
[2024-04-05 13:54] LABS: COARSE GRANULAR CAST 0-3 /LPF (NEGATIVE)
[2024-04-05 13:55] LABS: ALBUMIN 2.3 G/DL (3.4-5.0); ANION GAP 8 (8-16); BLOOD UREA NITROGEN 57 MG/DL (7-18); BUN/CREATININE RATIO 8.7 (10.0-20.0); CALCIUM 8.1 MG/DL (8.5-10.1); CHLORIDE 96 MMOL/L (99-107); CREATININE 6.52 MG/DL (0.60-1.10); POTASSIUM 4.6 MMOL/L (3.5-5.1); SODIUM 133 MMOL/L (135-145); TOTAL CARBON DIOXIDE 29.4 MMOL/L (24-32); eCRCL 11 ML/MIN; eGFR 9 ML/MIN
[2024-04-05 13:56] LABS: WAXY CASTS,URINE 0-3 /LPF (NEGATIVE)
[2024-04-05 13:57] LABS: APTT 28 SECONDS (22-32); INR 1.2 INR; PROTHROMBIN TIME 12.2 SECONDS (9.0-12.0)
[2024-04-05 14:01] LABS: GLUCOSE 123 MG/DL (70-104)
[2024-04-05 14:02] LABS: WBC,URINE 50-100 /HPF (0-4)
[2024-04-05 14:06] LABS: RENAL CELLS, URINE FEW /HPF; TRANSITIONAL EPI CELLS,URINE FEW /HPF
[2024-04-05 14:07] LABS: BACTERIA,URINE 1+ /HPF (Neg); RBC,URINE 0-2 /HPF (0-2)
[2024-04-05] MEDS: CefTRIAXone/D5W-Rocephin 1gm 50 ML IV ONE (14:38)
[2024-04-05] MEDS ORDERED: ondansetron/PF 4mg/2ml inj IV PRN (15:00)
[2024-04-05] MEDS ORDERED: potassium Cl 40MEQ/1/2NS 520ml 520 ML IV PRN (15:00)
[2024-04-05] MEDS ORDERED: acetaminophen 325mg tablet PO PRN ×2 (15:00)
[2024-04-05] MEDS ORDERED: magnesium sulf-water 4G/100mL 100 ML IV PRN (15:00)
[2024-04-05] MEDS ORDERED: potassium Cl 20 mEq SR tablet PO PRN ×2 (15:00)
[2024-04-05] MEDS: CefTRIAXone 2gm/D5W 50ml BAG 50 ML IV SCH (15:00)
[2024-04-05] MEDS ORDERED: magnesium sulf-water 2g/50mL 50 ML IV PRN (15:00)
[2024-04-05] MEDS ORDERED: magnesium Cl slow-release 64mg tablet PO PRN (15:00)
[2024-04-05] MEDS: methylPREDNISolone sod succ 125mg/2ml vial IV SCH (17:06)
[2024-04-05] MEDS: nicotine 14mg patch - 24hr TD SCH (17:06)
[2024-04-05] MEDS: morphine 2 MG/ML inj. syringe IV PRN (17:37)
[2024-04-05 18:23] VITALS: PULSE 74; RESP 16; O2SAT 93
[2024-04-05] MEDS: albuterol 2.5 MG/3 ML nebule NEB SCH (18:23)
[2024-04-05] MEDS ORDERED: VITA-268 PO (18:43)
[2024-04-05] MEDS ORDERED: LOP12.5T PO (18:43)
[2024-04-05] MEDS ORDERED: TRAZ-256 PO (18:43)
[2024-04-05] MEDS ORDERED: PHO667C PO (18:43)
[2024-04-05] MEDS ORDERED: HYDR25TA90 PO (18:43)
[2024-04-05] MEDS ORDERED: PARO10TA4 PO (18:43)
[2024-04-05] MEDS ORDERED: MELA10TA2 PO (18:43)
[2024-04-05] MEDS ORDERED: GABA300C PO (18:43)
[2024-04-05] MEDS ORDERED: ASPI81TA52 PO (18:43)
[2024-04-05] MEDS ORDERED: INSU100I29 (18:43)
[2024-04-05] MEDS ORDERED: [UNRECOGNIZED DRUG - CODE] PO (18:43)
[2024-04-05] MEDS: heparin, porcine 5000 units/ml vial SQ SCH (20:00)
[2024-04-05] MEDS: HYDROcodone/acetaminophen 5mg/325mg tablet PO PRN (20:03)
[2024-04-05] MEDS ORDERED: albuterol 2.5 MG/3 ML nebule NEB PRN (21:15)
[2024-04-06] VITALS (16 sets, daily range): BP systolic 88–136; BP diastolic 40–96; PULSE 63–86; RESP 15–22; TEMP 97.3–99.4; O2SAT 89–98
[2024-04-06 06:21] LABS: BASOPHILS % (AUTO) 0.1 % (0-1); EOSINOPHILS % (AUTO) 0 % (0-6); HEMATOCRIT 35.4 % (42.0-52.0); HEMOGLOBIN 11.7 g/dl (14.0-17.9); LYMPHOCYTES # (AUTO) 0.2 X10'3 (1.1-4.8); LYMPHOCYTES % (AUTO) 3.6 % (21-51); MEAN CORPUSCULAR HEMOGLOBIN 30.8 PG (27.0-31.0); MEAN CORPUSCULAR VOLUME 93.4 FL (78-98); MEAN PLATELET VOLUME 8.8 FL (7.4-10.4); MONOCYTES % (AUTO) 0.7 % (2-12); NEUTROPHILS % (AUTO) 95.6 % (42-75); PLATELET COUNT 122 X10'3 (140-440); RED BLOOD COUNT 3.79 X10'6 (4.70-6.10); RED CELL DISTRIBUTION WIDTH 16.2 % (11.5-14.5); WHITE BLOOD COUNT 6.3 X10'3 (4.5-11.0)
[2024-04-06 06:30] LABS: ALANINE AMINOTRANSFERASE 10 U/L (12-78); ALBUMIN 2.2 G/DL (3.4-5.0); ALBUMIN/GLOBULIN RATIO 0.6 (1.1-1.5); ALKALINE PHOSPHATASE 100 IU/L (46-116); ANION GAP 8 (8-16); ASPARTATE AMINO TRANSFERASE 16 U/L (10-37); BILIRUBIN,TOTAL 0.5 MG/DL (0.1-1.0); BLOOD UREA NITROGEN 66 MG/DL (7-18); CALCIUM 8.2 MG/DL (8.5-10.1); CHLORIDE 96 MMOL/L (99-107); CREATININE 7.34 MG/DL (0.60-1.10); POTASSIUM 5.3 MMOL/L (3.5-5.1); SODIUM 130 MMOL/L (135-145); TOTAL CARBON DIOXIDE 25.9 MMOL/L (24-32); TOTAL PROTEIN 6.2 G/DL (6.4-8.2); eCRCL 10 ML/MIN; eGFR 7 ML/MIN
[2024-04-06 06:51] LABS: GLUCOSE 203 MG/DL (70-104)
[2024-04-06] MEDS: cloNIDine 0.2 MG/24 HR patch (7 day patch) TD SCH (07:45)
[2024-04-06] MEDS ORDERED: oxybutynin 5mg tablet PO PRN (07:45)
[2024-04-06] MEDS ORDERED: dextrose 50%-water 50ml dispensing syringe IV PRN ×2 (07:50)
[2024-04-06] MEDS ORDERED: DEXTROSE 15 GM of carb/4 tabs (each vial/BOTTLE has 4 tablets) PO PRN ×2 (07:50)
[2024-04-06] MEDS ORDERED: glucagon, human recombinant 1mg kit SUBCUT PRN (07:50)
[2024-04-06] MEDS: vitamin B comp w/Vit. C tab 1 TAB TABLET PO SCH (08:55)
[2024-04-06] MEDS: gabapentin 300mg capsule PO SCH (08:55)
[2024-04-06] MEDS: aspirin 81mg, enteric-coated 1 TAB TABLET.DR PO SCH (08:55)
[2024-04-06] MEDS: ascorbic acid 500mg tablet PO SCH (08:55)
[2024-04-06] MEDS: calcium acetate 667mg (PhosLO) capsule PO SCH (08:58)
[2024-04-06] MEDS: metoprolol tartrate 25mg tablet PO SCH (08:58)
[2024-04-06] MEDS: hydrALAZINE 25 MG tablet PO SCH (08:59)
[2024-04-06] MEDS: morphine ER 30mg tablet PO SCH (10:32)
[2024-04-06] MEDS: PARoxetine 10mg tablet PO SCH (10:32)
[2024-04-06] MEDS: INSULIN LISPRO 100 UNIT/ML INSULN.PEN MULTI-DOSE SQ SCH (12:00)
[2024-04-06] MEDS ORDERED: albumin (human) 25% 100ml IV 100 ML IV PRN (12:10)
[2024-04-06] MEDS: heparin 1,000unit/ml 10ml vial 10 ML IV ONE (13:40)
[2024-04-06] MEDS: heparin 1,000 units/ml 10ml inj IV ONE (13:40)
[2024-04-06] MEDS: heparin 1,000 units/ml 10ml inj HE ONE ×2 (13:41)
[2024-04-06] MEDS: CefTRIAXone 2gm/D5W 50ml BAG 50 ML IV SCH (15:40)
[2024-04-06] MEDS: nystatin 15 GM powder TP SCH (19:58)
[2024-04-06] MEDS: traZODone 50mg tablet PO SCH (20:32)
[2024-04-06] MEDS: atorvastatin 20mg tablet PO SCH (20:32)
[2024-04-06] MEDS: Melatonin 3mg tablet PO SCH (20:33)
[2024-04-06] MEDS: insulin glargine (Lantus) pen - multi-dose SQ SCH (20:43)
[2024-04-07 02:00] VITALS: BP 138/55; PULSE 67; RESP 15; TEMP 96.8; O2SAT 95
[2024-04-07 06:00] VITALS: BP 132/67; PULSE 61; RESP 11; TEMP 97.7; O2SAT 98
[2024-04-07 06:58] LABS: BASOPHILS % (AUTO) 0.1 % (0-1); EOSINOPHILS % (AUTO) 0 % (0-6); HEMATOCRIT 32.5 % (42.0-52.0); HEMOGLOBIN 10.9 g/dl (14.0-17.9); LYMPHOCYTES # (AUTO) 0.3 X10'3 (1.1-4.8); LYMPHOCYTES % (AUTO) 3.5 % (21-51); MEAN CORPUSCULAR HEMOGLOBIN 31.3 PG (27.0-31.0); MEAN CORPUSCULAR HGB CONC 33.4 g/dL (33.0-36.5); MEAN CORPUSCULAR VOLUME 93.6 FL (78-98); MEAN PLATELET VOLUME 8.5 FL (7.4-10.4); MONOCYTES # (AUTO) 0.3 X10'3 (0-0.9); MONOCYTES % (AUTO) 3.3 % (2-12); NEUTROPHILS % (AUTO) 93.1 % (42-75); PLATELET COUNT 130 X10'3 (140-440); RED BLOOD COUNT 3.47 X10'6 (4.70-6.10); RED CELL DISTRIBUTION WIDTH 16.7 % (11.5-14.5); WHITE BLOOD COUNT 9.7 X10'3 (4.5-11.0)
[2024-04-07 07:21] LABS: ALANINE AMINOTRANSFERASE 11 U/L (12-78); ALBUMIN 2.4 G/DL (3.4-5.0); ALBUMIN/GLOBULIN RATIO 0.6 (1.1-1.5); ALKALINE PHOSPHATASE 93 IU/L (46-116); ANION GAP 11 (8-16); ASPARTATE AMINO TRANSFERASE 15 U/L (10-37); BILIRUBIN,TOTAL 0.4 MG/DL (0.1-1.0); BLOOD UREA NITROGEN 60 MG/DL (7-18); BUN/CREATININE RATIO 10.3 (10.0-20.0); CALCIUM 8.2 MG/DL (8.5-10.1); CHLORIDE 96 MMOL/L (99-107); CREATININE 5.84 MG/DL (0.60-1.10); POTASSIUM 4.8 MMOL/L (3.5-5.1); SODIUM 132 MMOL/L (135-145); TOTAL CARBON DIOXIDE 25.1 MMOL/L (24-32); TOTAL PROTEIN 6.6 G/DL (6.4-8.2); eCRCL 12 ML/MIN; eGFR 10 ML/MIN
[2024-04-07 08:00] VITALS: RESP 11; O2SAT 98
[2024-04-07] MEDS: gabapentin 100mg capsule PO SCH (08:19)
[2024-04-07 08:39] LABS: GLUCOSE 200 MG/DL (70-104)
[2024-04-07 11:00] VITALS: BP 111/61; PULSE 63; RESP 15; TEMP 98.2; O2SAT 90
[2024-04-07] MEDS ORDERED: LACT1CAP26 PO (12:57)
[2024-04-07] MEDS ORDERED: CEFD300C3 PO (12:57)
[2024-04-07 14:10] VITALS: PULSE 65; RESP 16; O2SAT 93
[2024-04-08 08:15] LABS: HBSAG SCREEN Negative (Negative)
== END 2024-04-07 14:25 | disposition home or self-care (01) | DRG 640 ==
LOC: ER 12:23 → ED HOLD 15:00 → PCU 3S 04-06 01:40
PROVIDERS: ADMIT Internal Medicine; ATTEND Internal Medicine
PROC: 5A1D70Z Performance of Urinary Filtration, Intermittent, Less than 6 Hours Per Day (ICD-10-PCS; principal; 2024-04-06)
DX: E87.79 Other fluid overload (principal); G93.41 Metabolic encephalopathy; N18.6 End stage renal disease; I13.2 Hypertensive heart and chronic kidney disease with heart failure and with stage 5 chronic kidney disease, or end stage renal disease; N39.0 Urinary tract infection, site not specified; Z66 Do not resuscitate; E11.22 Type 2 diabetes mellitus with diabetic chronic kidney disease; F17.210 Nicotine dependence, cigarettes, uncomplicated; E11.319 Type 2 diabetes mellitus with unspecified diabetic retinopathy without macular edema; E11.51 Type 2 diabetes mellitus with diabetic peripheral angiopathy without gangrene; F32.A Depression, unspecified; F41.9 Anxiety disorder, unspecified; G89.29 Other chronic pain; E78.00 Pure hypercholesterolemia, unspecified; I50.9 Heart failure, unspecified; J44.9 Chronic obstructive pulmonary disease, unspecified; I25.10 Atherosclerotic heart disease of native coronary artery without angina pectoris; Z85.47 Personal history of malignant neoplasm of testis; Z99.2 Dependence on renal dialysis; Z98.1 Arthrodesis status; Z87.440 Personal history of urinary (tract) infections; Z85.038 Personal history of other malignant neoplasm of large intestine; Z90.49 Acquired absence of other specified parts of digestive tract
CPT/HCPCS: 36415; 71045; 80048; 80053; 81001; 82948; 83036; 83605; 85025; 85610; 85730; 86885; 86900; 86901; 87077; 87081; 87088; 87186; 87340; 93005; 94760; 97162; 97530; 99285; E1594; G0257; G0378; J0696; J1644; J1815; J2270; J2919; J7030

== ENCOUNTER 2024-04-23 07:15 | Inpatient (IN) | payer MEDICARE, MEDICAID ==
[~2024-04-23] VITALS: Ht 182.9 cm; Wt 110.5 kg
[2024-04-23] VITALS (20 sets, daily range): BP systolic 88–144; BP diastolic 49–61; PULSE 78–87; RESP 15–20; TEMP 97.6–98.6; O2SAT 97–100
[~2024-04-23 07:15] MED LIST changes: +ASPI81TA52 PO; +GABA300C PO; +HYDR25TA90 PO; +INSU100I29; +LACT1CAP26 PO; +MELA10TA2 PO; +PARO10TA4 PO; +PHO667C PO; -POLY17PO59 PO; +TRAZ-256 PO; +VITA-268 PO; +[UNRECOGNIZED DRUG - CODE] PO
[2024-04-23 08:05] LABS: BASOPHILS # (AUTO) 0.1 X10'3 (0-0.2); BASOPHILS % (AUTO) 0.9 % (0-1); EOSINOPHILS # (AUTO) 0.1 X10'3 (0-0.9); EOSINOPHILS % (AUTO) 0.6 % (0-6); LYMPHOCYTES # (AUTO) 1.1 X10'3 (1.1-4.8); LYMPHOCYTES % (AUTO) 7.5 % (21-51); MEAN CORPUSCULAR HGB CONC 32.2 g/dL (33.0-36.5); MEAN CORPUSCULAR VOLUME 96.3 FL (78-98); MEAN PLATELET VOLUME 8.9 FL (7.4-10.4); MONOCYTES # (AUTO) 1.1 X10'3 (0-0.9); MONOCYTES % (AUTO) 7.9 % (2-12); NEUTROPHILS # (AUTO) 11.9 X10'3 (1.8-7.7); NEUTROPHILS % (AUTO) 83.1 % (42-75); PLATELET COUNT 141 X10'3 (140-440); RED BLOOD COUNT 2.09 X10'6 (4.70-6.10); RED CELL DISTRIBUTION WIDTH 18.3 % (11.5-14.5); WHITE BLOOD COUNT 14.4 X10'3 (4.5-11.0)
[2024-04-23 08:07] LABS: HEMOGLOBIN 6.5 g/dl (14.0-17.9)
[2024-04-23 08:08] LABS: HEMATOCRIT 20.2 % (42.0-52.0)
[2024-04-23 08:20] LABS: ALANINE AMINOTRANSFERASE 134 U/L (12-78); ALBUMIN/GLOBULIN RATIO 0.6 (1.1-1.5); ALKALINE PHOSPHATASE 84 IU/L (46-116); ANION GAP 7 (8-16); ASPARTATE AMINO TRANSFERASE 252 U/L (10-37); BILIRUBIN,TOTAL 0.5 MG/DL (0.1-1.0); BLOOD UREA NITROGEN 91 MG/DL (7-18); BUN/CREATININE RATIO 19.4 (10.0-20.0); CALCIUM 8.8 MG/DL (8.5-10.1); CHLORIDE 103 MMOL/L (99-107); CREATININE 4.69 MG/DL (0.60-1.10); GLUCOSE 148 MG/DL (70-104); SODIUM 140 MMOL/L (135-145); TOTAL CARBON DIOXIDE 29.7 MMOL/L (24-32); TOTAL PROTEIN 5.4 G/DL (6.4-8.2); eCRCL 17 ML/MIN; eGFR 13 ML/MIN
[2024-04-23 08:29] LABS: C-REACTIVE PROTEIN 5.35 MG/DL (0.0-0.5); FREE T4 (FREE THYROXINE) 0.94 NG/DL (0.73-1.40); PRO BRAIN NATRIURETIC PEPTIDE 26541 PG/ML (0-125); THYROID STIMULATING HORMONE 3.79 ulU/ml (0.34-4.50)
[2024-04-23 08:31] LABS: PLATELET ESTIMATE NORMAL; POLYCHROMASIA 1+
[2024-04-23 08:33] LABS: ANISOCYTOSIS 2+; HYPOCHROMASIA 1+; SCHISTOCYTES FEW; TARGET CELLS FEW
[2024-04-23] MEDS ORDERED: iohexol 350MG/ML 100ml bottle IV ONE (08:51)
[2024-04-23 09:42] LABS: ABG BASE EXCESS 2.6 mmol/L (-2.0-3.0); ABG HCO3 27.8 mmol/L (21.0-28.0); ABG OXYGEN SATURATION 93.5 % (94.0-98.0); ABG PCO2 (T) 45.6 mmHg (35.0-48.0); ABG PH (T) 7.401 (7.350-7.450); ABG PO2 (T) 75.4 mmHg (83.0-108.0); ALLEN'S TEST POSITIVE; FCOHb 0.9 % (0.5-1.5); FHHb 6.4 % (0.0-5.0); FLOW 2 L/min; FMetHb 0.6 % (0.0-1.5); FO2Hb 92.1 % (94.0-98.0); MODE NC; PATIENT TEMPERATURE 36.6; TOTAL HEMOGLOBIN 8.1 G/dl (13.5-17.5)
[2024-04-23] MEDS: morphine 4 MG/ML inj SYRINge IV ONE (10:30)
[2024-04-23] MEDS: morphine 4 MG/ML inj SYRINge ONE (10:50)
[2024-04-23] MEDS ORDERED: magnesium hydroxide 30ml (MOM) UD suspension PO PRN (11:25)
[2024-04-23] MEDS ORDERED: potassium Cl 40MEQ/1/2NS 520ml 520 ML IV PRN (11:25)
[2024-04-23] MEDS ORDERED: mag hydrox/Alum hydrox/simeth 30ml oral suspension PO PRN (11:25)
[2024-04-23] MEDS ORDERED: magnesium sulf-water 2g/50mL 50 ML IV PRN (11:25)
[2024-04-23] MEDS ORDERED: magnesium sulf-water 4G/100mL 100 ML IV PRN (11:25)
[2024-04-23] MEDS ORDERED: magnesium Cl slow-release 64mg tablet PO PRN (11:25)
[2024-04-23] MEDS ORDERED: acetaminophen 325mg tablet PO PRN (11:25)
[2024-04-23] MEDS ORDERED: potassium Cl 20 mEq SR tablet PO PRN ×2 (11:25)
[2024-04-23] MEDS ORDERED: ondansetron/PF 4mg/2ml inj IV PRN (11:25)
[2024-04-23] MEDS ORDERED: DEXTROSE 15 GM of carb/4 tabs (each vial/BOTTLE has 4 tablets) PO PRN ×2 (11:55)
[2024-04-23] MEDS ORDERED: morphine 2 MG/ML inj. syringe IV PRN (11:55)
[2024-04-23] MEDS ORDERED: dextrose 50%-water 50ml dispensing syringe IV PRN ×2 (11:55)
[2024-04-23] MEDS ORDERED: glucagon, human recombinant 1mg kit SUBCUT PRN (11:55)
[2024-04-23] MEDS ORDERED: hydrALAZINE 20mg/ml inj. IV PRN (11:55)
[2024-04-23] MEDS: INSULIN LISPRO 100 UNIT/ML INSULN.PEN MULTI-DOSE SQ SCH (12:00)
[2024-04-23] MEDS ORDERED: cefepime 1GM in D5W 50mL 100 ML IV SCH (13:40)
[2024-04-23] MEDS: diphenhydrAMINE 25mg capsule PO ONE (15:22)
[2024-04-23] MEDS: VANCOMYCIN 500MG/WATER FOR INJ (PEG) PREMIX 100 ML IV SCH (15:23)
[2024-04-23] MEDS: acetaminophen 325mg tablet PO ONE (15:23)
[2024-04-23] MEDS ORDERED: cefepime 1GM/NS ADD-VANTAGE 100 ML IV SCH (16:00)
[2024-04-23] MEDS: K and/or MAG REPLACEMENT MC SCH (20:00)
[2024-04-23] MEDS: docusate sod 100mg capsule PO SCH (20:00)
[2024-04-23] MEDS ORDERED: enoxaparin 40mg/0.4ml syringe SQ SCH (20:00)
[2024-04-23] MEDS ORDERED: FURO80TA87 PO (20:03)
[2024-04-23] MEDS: albumin (human) 25% 100ml IV 100 ML IV PRN (21:26)
[2024-04-23] MEDS: heparin 1,000 units/ml 10ml inj HE ONE ×2 (21:52)
[2024-04-23] MEDS: heparin 1,000 units/ml 10ml inj IV ONE (21:52)
[2024-04-23] MEDS: heparin 1,000unit/ml 10ml vial 10 ML IV ONE (21:53)
[2024-04-23] MEDS: EPOETIN ALFA-EPBX 20,000 UNIT/ML 1 ML MDV IV ONE (23:01)
[2024-04-24] VITALS (15 sets, daily range): BP systolic 89–126; BP diastolic 45–65; PULSE 80–90; RESP 13–24; TEMP 97.6–98.7; O2SAT 92–98
[2024-04-24] MEDS: cefepime 1GM in D5W 50mL 50 ML IV SCH (00:09)
[2024-04-24 06:59] LABS: BASOPHILS # (AUTO) 0.1 X10'3 (0-0.2); BASOPHILS % (AUTO) 0.7 % (0-1); EOSINOPHILS # (AUTO) 0.2 X10'3 (0-0.9); EOSINOPHILS % (AUTO) 1.4 % (0-6); HEMATOCRIT 22.5 % (42.0-52.0); HEMOGLOBIN 7.5 g/dl (14.0-17.9); LYMPHOCYTES # (AUTO) 0.6 X10'3 (1.1-4.8); LYMPHOCYTES % (AUTO) 5.4 % (21-51); MEAN CORPUSCULAR HGB CONC 33.4 g/dL (33.0-36.5); MEAN CORPUSCULAR VOLUME 92.8 FL (78-98); MEAN PLATELET VOLUME 8.3 FL (7.4-10.4); MONOCYTES # (AUTO) 0.9 X10'3 (0-0.9); MONOCYTES % (AUTO) 7.8 % (2-12); NEUTROPHILS # (AUTO) 9.5 X10'3 (1.8-7.7); NEUTROPHILS % (AUTO) 84.7 % (42-75); PLATELET COUNT 102 X10'3 (140-440); RED BLOOD COUNT 2.42 X10'6 (4.70-6.10); RED CELL DISTRIBUTION WIDTH 18.1 % (11.5-14.5); WHITE BLOOD COUNT 11.3 X10'3 (4.5-11.0)
[2024-04-24 07:31] LABS: % IRON SATURATION 16 % (11-46); IRON 34 UG/DL (53-167); TOTAL IRON BINDING CAPACITY 212 UG/DL (259-388)
[2024-04-24 07:33] LABS: ALANINE AMINOTRANSFERASE 145 U/L (12-78); ALBUMIN 2.2 G/DL (3.4-5.0); ALBUMIN/GLOBULIN RATIO 0.7 (1.1-1.5); ALKALINE PHOSPHATASE 72 IU/L (46-116); ANION GAP 8 (8-16); ASPARTATE AMINO TRANSFERASE 197 U/L (10-37); BILIRUBIN,TOTAL 0.8 MG/DL (0.1-1.0); BLOOD UREA NITROGEN 55 MG/DL (7-18); BUN/CREATININE RATIO 15.9 (10.0-20.0); CALCIUM 8.3 MG/DL (8.5-10.1); CHLORIDE 104 MMOL/L (99-107); CREATININE 3.47 MG/DL (0.60-1.10); FERRITIN 640 NG/ML (26-388); GLUCOSE 101 MG/DL (70-104); PRO BRAIN NATRIURETIC PEPTIDE 22309 PG/ML (0-125); SODIUM 140 MMOL/L (135-145); TOTAL CARBON DIOXIDE 28.3 MMOL/L (24-32); TOTAL PROTEIN 5.3 G/DL (6.4-8.2); eCRCL 23 ML/MIN; eGFR 18 ML/MIN
[2024-04-24] MEDS: furosemide 40mg/4ml inj IV SCH (08:00)
[2024-04-24] MEDS: albumin (human) 25% 100ml IV 100 ML IV PRN (14:01)
[2024-04-24] MEDS: EPOETIN ALFA-EPBX 20,000 UNIT/ML 1 ML MDV IV ONE (14:45)
[2024-04-24] MEDS: heparin 1,000unit/ml 10ml vial 10 ML IV ONE (14:47)
[2024-04-24] MEDS: heparin 1,000 units/ml 10ml inj HE ONE ×2 (14:50→14:51)
[2024-04-24] MEDS: heparin 1,000 units/ml 10ml inj IV ONE (14:50)
[2024-04-24] MEDS: calcium acetate 667mg (PhosLO) capsule PO SCH (17:18)
[2024-04-24] MEDS: PERFLUTREN PROTEIN-A MICROSPHR (Optison) 0.22 MG/ML 3ML VIAL IV ONE (19:34)
[2024-04-24] MEDS: metoprolol tartrate 25mg tablet PO SCH (21:22)
[2024-04-24] MEDS: ascorbic acid 500mg tablet PO SCH (21:57)
[2024-04-24] MEDS: Melatonin 3mg tablet PO SCH (21:58)
[2024-04-24] MEDS: traZODone 50mg tablet PO SCH (21:58)
[2024-04-24] MEDS: gabapentin 300mg capsule PO SCH (21:58)
[2024-04-24] MEDS: atorvastatin 20mg tablet PO SCH (21:58)
[2024-04-24] MEDS: morphine ER 30mg tablet PO SCH (21:58)
[2024-04-25] MEDS: oxyCODONE IR 5mg (immed. release) tablet PO PRN (01:58)
[2024-04-25 02:00] VITALS: BP 95/37; PULSE 82; RESP 12; TEMP 98.6; O2SAT 96
[2024-04-25 06:00] VITALS: BP 94/37; PULSE 79; RESP 12; TEMP 98; O2SAT 94
[2024-04-25] MEDS: vitamin B comp w/Vit. C tab 1 TAB TABLET PO SCH (07:27)
[2024-04-25] MEDS: aspirin 81mg, enteric-coated 1 TAB TABLET.DR PO SCH (07:28)
[2024-04-25] MEDS: calcium acetate 667mg (PhosLO) capsule PO SCH (07:28)
[2024-04-25] MEDS: PARoxetine 10mg tablet PO SCH (07:32)
[2024-04-25 09:05] LABS: BASOPHILS # (AUTO) 0.1 X10'3 (0-0.2); BASOPHILS % (AUTO) 0.6 % (0-1); EOSINOPHILS # (AUTO) 0.2 X10'3 (0-0.9); EOSINOPHILS % (AUTO) 1.8 % (0-6); HEMATOCRIT 22.4 % (42.0-52.0); HEMOGLOBIN 7.5 g/dl (14.0-17.9); LYMPHOCYTES # (AUTO) 0.8 X10'3 (1.1-4.8); LYMPHOCYTES % (AUTO) 9.3 % (21-51); MEAN CORPUSCULAR HEMOGLOBIN 31.5 PG (27.0-31.0); MEAN CORPUSCULAR HGB CONC 33.4 g/dL (33.0-36.5); MEAN CORPUSCULAR VOLUME 94.5 FL (78-98); MEAN PLATELET VOLUME 8.7 FL (7.4-10.4); MONOCYTES % (AUTO) 11.6 % (2-12); NEUTROPHILS # (AUTO) 6.7 X10'3 (1.8-7.7); NEUTROPHILS % (AUTO) 76.7 % (42-75); PLATELET COUNT 106 X10'3 (140-440); RED BLOOD COUNT 2.38 X10'6 (4.70-6.10); RED CELL DISTRIBUTION WIDTH 18.6 % (11.5-14.5); WHITE BLOOD COUNT 8.7 X10'3 (4.5-11.0)
[2024-04-25 09:45] LABS: ALANINE AMINOTRANSFERASE 109 U/L (12-78); ALBUMIN 2.2 G/DL (3.4-5.0); ALBUMIN/GLOBULIN RATIO 0.7 (1.1-1.5); ALKALINE PHOSPHATASE 76 IU/L (46-116); ANION GAP 7 (8-16); ASPARTATE AMINO TRANSFERASE 87 U/L (10-37); BILIRUBIN,TOTAL 0.8 MG/DL (0.1-1.0); BLOOD UREA NITROGEN 35 MG/DL (7-18); BUN/CREATININE RATIO 11.6 (10.0-20.0); CALCIUM 8.7 MG/DL (8.5-10.1); CHLORIDE 105 MMOL/L (99-107); CREATININE 3.03 MG/DL (0.60-1.10); GLUCOSE 98 MG/DL (70-104); POTASSIUM 3.7 MMOL/L (3.5-5.1); PRO BRAIN NATRIURETIC PEPTIDE 19318 PG/ML (0-125); SODIUM 139 MMOL/L (135-145); TOTAL CARBON DIOXIDE 26.7 MMOL/L (24-32); TOTAL PROTEIN 5.4 G/DL (6.4-8.2); eCRCL 26 ML/MIN; eGFR 21 ML/MIN
[2024-04-25 09:55] LABS: ANISOCYTOSIS 2+; PLATELET ESTIMATE DECREASED
[2024-04-25 09:56] LABS: POLYCHROMASIA 1+
[2024-04-25 11:00] VITALS: BP 92/86; PULSE 78; RESP 18; TEMP 97; O2SAT 92
[2024-04-25] MEDS: morphine 2 MG/ML inj. syringe IV PRN (13:02)
[2024-04-25 16:03] VITALS: RESP 15; O2SAT 94
[2024-04-25 18:43] VITALS: BP 124/49; PULSE 91; RESP 16; TEMP 97.1; O2SAT 93
[2024-04-25 23:30] VITALS: BP 100/43; PULSE 76; RESP 20; TEMP 97.8; O2SAT 92
[2024-04-26] VITALS (9 sets, daily range): BP systolic 89–121; BP diastolic 40–92; PULSE 64–79; RESP 12–18; TEMP 97.8–99; O2SAT 92–96
[2024-04-26 07:56] LABS: BASOPHILS # (AUTO) 0.1 X10'3 (0-0.2); BASOPHILS % (AUTO) 1.1 % (0-1); EOSINOPHILS # (AUTO) 0.1 X10'3 (0-0.9); EOSINOPHILS % (AUTO) 1.2 % (0-6); HEMATOCRIT 23.1 % (42.0-52.0); HEMOGLOBIN 7.4 g/dl (14.0-17.9); LYMPHOCYTES # (AUTO) 0.7 X10'3 (1.1-4.8); LYMPHOCYTES % (AUTO) 6.9 % (21-51); MEAN CORPUSCULAR HEMOGLOBIN 32.2 PG (27.0-31.0); MEAN CORPUSCULAR HGB CONC 32.3 g/dL (33.0-36.5); MEAN CORPUSCULAR VOLUME 99.6 FL (78-98); MEAN PLATELET VOLUME 8.7 FL (7.4-10.4); MONOCYTES # (AUTO) 1.1 X10'3 (0-0.9); MONOCYTES % (AUTO) 11.2 % (2-12); NEUTROPHILS # (AUTO) 7.5 X10'3 (1.8-7.7); NEUTROPHILS % (AUTO) 79.6 % (42-75); PLATELET COUNT 105 X10'3 (140-440); RED BLOOD COUNT 2.31 X10'6 (4.70-6.10); RED CELL DISTRIBUTION WIDTH 20.2 % (11.5-14.5); WHITE BLOOD COUNT 9.4 X10'3 (4.5-11.0)
[2024-04-26 08:25] LABS: ALANINE AMINOTRANSFERASE 75 U/L (12-78); ALBUMIN 2.1 G/DL (3.4-5.0); ALBUMIN/GLOBULIN RATIO 0.6 (1.1-1.5); ALKALINE PHOSPHATASE 75 IU/L (46-116); ANION GAP 10 (8-16); ASPARTATE AMINO TRANSFERASE 45 U/L (10-37); BILIRUBIN,TOTAL 0.7 MG/DL (0.1-1.0); BLOOD UREA NITROGEN 44 MG/DL (7-18); BUN/CREATININE RATIO 10.6 (10.0-20.0); CALCIUM 8.2 MG/DL (8.5-10.1); CHLORIDE 101 MMOL/L (99-107); CREATININE 4.17 MG/DL (0.60-1.10); GLUCOSE 137 MG/DL (70-104); PLATELET ESTIMATE DECREASED; SODIUM 135 MMOL/L (135-145); TOTAL PROTEIN 5.8 G/DL (6.4-8.2); eCRCL 19 ML/MIN; eGFR 14 ML/MIN
[2024-04-26 08:26] LABS: ANISOCYTOSIS 3+; SCHISTOCYTES FEW
[2024-04-26 08:59] LABS: PHOSPHORUS 3.5 MG/DL (2.3-4.5)
[2024-04-26] MEDS ORDERED: albumin (Human) 5% 250ml 250 ML IV PRN (09:40)
[2024-04-26] MEDS: heparin 1,000unit/ml 10ml vial 10 ML IV ONE (09:40)
[2024-04-26] MEDS: heparin 1,000 units/ml 10ml inj IV ONE (09:40)
[2024-04-26] MEDS: heparin 1,000 units/ml 10ml inj HE ONE ×2 (09:45)
[2024-04-26 11:21] LABS: FREE T4 (FREE THYROXINE) 1.12 NG/DL (0.73-1.40); THYROID STIMULATING HORMONE 3.79 ulU/ml (0.34-4.50)
[2024-04-26] MEDS: VANCOMYCIN LEVEL IV ONE (15:03)
[2024-04-26] MEDS ORDERED: VANCOMYCIN 1GM 200ML H20 (PEG) 200 ML IV PRN (15:05)
[2024-04-27] VITALS (12 sets, daily range): BP systolic 84–108; BP diastolic 39–61; PULSE 69–87; RESP 14–20; TEMP 97.6–99; O2SAT 89–97
[2024-04-27] MEDS: VANCOMYCIN LEVEL IV SCH (03:00)
[2024-04-27 03:51] LABS: BASOPHILS # (AUTO) 0.1 X10'3 (0-0.2); BASOPHILS % (AUTO) 0.9 % (0-1); EOSINOPHILS # (AUTO) 0.2 X10'3 (0-0.9); EOSINOPHILS % (AUTO) 2.6 % (0-6); HEMATOCRIT 23.2 % (42.0-52.0); HEMOGLOBIN 7.6 g/dl (14.0-17.9); LYMPHOCYTES # (AUTO) 0.8 X10'3 (1.1-4.8); LYMPHOCYTES % (AUTO) 9.1 % (21-51); MEAN CORPUSCULAR HEMOGLOBIN 31.5 PG (27.0-31.0); MEAN CORPUSCULAR VOLUME 95.6 FL (78-98); MEAN PLATELET VOLUME 8.7 FL (7.4-10.4); MONOCYTES # (AUTO) 0.9 X10'3 (0-0.9); MONOCYTES % (AUTO) 10.8 % (2-12); NEUTROPHILS # (AUTO) 6.6 X10'3 (1.8-7.7); NEUTROPHILS % (AUTO) 76.6 % (42-75); PLATELET COUNT 131 X10'3 (140-440); RED BLOOD COUNT 2.43 X10'6 (4.70-6.10); RED CELL DISTRIBUTION WIDTH 19.3 % (11.5-14.5); WHITE BLOOD COUNT 8.6 X10'3 (4.5-11.0)
[2024-04-27 04:08] LABS: ANISOCYTOSIS 2+; ELLIPTOCYTES 1+; HYPOCHROMASIA 1+; MICROCYTOSIS 2+; PLATELET ESTIMATE DECREASED
[2024-04-27 04:25] LABS: ALANINE AMINOTRANSFERASE 59 U/L (12-78); ALBUMIN 2.1 G/DL (3.4-5.0); ALBUMIN/GLOBULIN RATIO 0.6 (1.1-1.5); ALKALINE PHOSPHATASE 79 IU/L (46-116); ANION GAP 9 (8-16); ASPARTATE AMINO TRANSFERASE 27 U/L (10-37); BILIRUBIN,TOTAL 0.6 MG/DL (0.1-1.0); BLOOD UREA NITROGEN 50 MG/DL (7-18); BUN/CREATININE RATIO 9.4 (10.0-20.0); CHLORIDE 100 MMOL/L (99-107); CREATININE 5.31 MG/DL (0.60-1.10); GLUCOSE 145 MG/DL (70-104); POTASSIUM 4.3 MMOL/L (3.5-5.1); PRO BRAIN NATRIURETIC PEPTIDE 22045 PG/ML (0-125); SODIUM 135 MMOL/L (135-145); TOTAL CARBON DIOXIDE 25.7 MMOL/L (24-32); TOTAL PROTEIN 5.5 G/DL (6.4-8.2); VANCOMYCIN,RANDOM 11.3 ug/mL (20.0-30.0); eCRCL 15 ML/MIN; eGFR 11 ML/MIN
[2024-04-27] MEDS: gabapentin 300mg capsule PO SCH (07:51)
[2024-04-27] MEDS ORDERED: cefepime inj. 0.5 GM in normal saline 100ml IV soln 105 ML IV SCH (08:00)
[2024-04-27] MEDS: cefepime 1GM in D5W 50mL 50 ML IV SCH (08:00)
[2024-04-27] MEDS ORDERED: cefepime 1GM/NS 100 ML IVPB IV SCH (08:00)
[2024-04-27] MEDS: albumin (human) 25% 100ml IV 100 ML IV PRN (08:55)
[2024-04-27] MEDS: VANCOMYCIN 1GM 200ML H20 (PEG) 200 ML IV ONE (09:57)
[2024-04-27] MEDS: EPOETIN ALFA-EPBX 20,000 UNIT/ML 1 ML MDV IV ONE (10:02)
[2024-04-28 02:00] VITALS: BP 104/48
[2024-04-28 06:00] VITALS: BP 94/43; PULSE 61; RESP 15; TEMP 97; O2SAT 92
[2024-04-28 08:00] VITALS: RESP 15; O2SAT 92
[2024-04-28 11:00] VITALS: BP 100/63; PULSE 65; RESP 12; TEMP 98.1; O2SAT 92
== END 2024-04-28 14:36 | disposition hospice, home (50) | DRG 871 ==
LOC: ER 07:15 → ED HOLD 11:35 → PCU 3S 13:29
PROVIDERS: ADMIT Internal Medicine; ATTEND Internal Medicine
PROC: B3251ZZ Computerized Tomography (CT Scan) of Bilateral Common Carotid Arteries using Low Osmolar Contrast (ICD-10-PCS; principal; 2024-04-23)
PROC: B32G1ZZ Computerized Tomography (CT Scan) of Bilateral Vertebral Arteries using Low Osmolar Contrast (ICD-10-PCS; 2024-04-23)
PROC: B32R1ZZ Computerized Tomography (CT Scan) of Intracranial Arteries using Low Osmolar Contrast (ICD-10-PCS; 2024-04-23)
PROC: B3281ZZ Computerized Tomography (CT Scan) of Bilateral Internal Carotid Arteries using Low Osmolar Contrast (ICD-10-PCS; 2024-04-23)
PROC: 30233N1 Transfusion of Nonautologous Red Blood Cells into Peripheral Vein, Percutaneous Approach (ICD-10-PCS; 2024-04-23)
PROC: 5A1D70Z Performance of Urinary Filtration, Intermittent, Less than 6 Hours Per Day (ICD-10-PCS; 2024-04-23)
PROC: 5A1D70Z Performance of Urinary Filtration, Intermittent, Less than 6 Hours Per Day (ICD-10-PCS; 2024-04-24)
PROC: 5A1D70Z Performance of Urinary Filtration, Intermittent, Less than 6 Hours Per Day (ICD-10-PCS; 2024-04-27)
DX: A41.9 Sepsis, unspecified organism (principal); G93.41 Metabolic encephalopathy; I21.4 Non-ST elevation (NSTEMI) myocardial infarction; N18.6 End stage renal disease; I13.2 Hypertensive heart and chronic kidney disease with heart failure and with stage 5 chronic kidney disease, or end stage renal disease; F11.20 Opioid dependence, uncomplicated; L03.115 Cellulitis of right lower limb; L03.116 Cellulitis of left lower limb; Z66 Do not resuscitate; F17.210 Nicotine dependence, cigarettes, uncomplicated; I50.9 Heart failure, unspecified; E78.00 Pure hypercholesterolemia, unspecified; F32.A Depression, unspecified; F41.9 Anxiety disorder, unspecified; G89.29 Other chronic pain; I25.10 Atherosclerotic heart disease of native coronary artery without angina pectoris; J44.89 Other specified chronic obstructive pulmonary disease; E11.51 Type 2 diabetes mellitus with diabetic peripheral angiopathy without gangrene; G93.89 Other specified disorders of brain; E11.22 Type 2 diabetes mellitus with diabetic chronic kidney disease; D50.9 Iron deficiency anemia, unspecified; Z79.82 Long term (current) use of aspirin; Z79.899 Other long term (current) drug therapy; Z90.49 Acquired absence of other specified parts of digestive tract; Z51.5 Encounter for palliative care; Z79.4 Long term (current) use of insulin; Z80.42 Family history of malignant neoplasm of prostate; Z85.038 Personal history of other malignant neoplasm of large intestine; Z95.5 Presence of coronary angioplasty implant and graft; Z98.1 Arthrodesis status; Z99.2 Dependence on renal dialysis
CPT/HCPCS: 36415; 36430; 36600; 70450; 70496; 70498; 71045; 80053; 80202; 82607; 82728; 82803; 82948; 83540; 83550; 83605; 83735; 83880; 84100; 84145; 84439; 84443; 84484; 85008; 85018; 85025; 85651; 86140; 86885; 86900; 86901; 86920; 86945; 87040; 87081; 93005; 93306; 96374; 97110; 97162; 99285; A6213; A6223; A6260; A6446; A6449; E1594; G0257; G0378; J0692; J1644; J1815; J1940; J2270; J3372; J7030; J7040; P9016; P9047; Q0163; Q4081; Q9967